=== PATIENT | female | born 1975 | race Hispanic/Latino ===

== ENCOUNTER 2019-05-18 12:08 | Outpatient (CLI) | payer OTHER ==
--- NOTE | 2019-05-18 17:22 | ULT ---
THYROID ULTRASOUND: 05/18/19 COMPARISON: None. HISTORY: Nodule in the thyroid gland, lump in the neck. TECHNIQUE: Multiplanar carroll scale sonographic imaging of the thyroid gland obtained. FINDINGS: Thyroid isthmus measures 4 mm in AP dimension. Right lobe measures 5.1 x 1.9 x 2.0 cm and left lobe m easures 3.8 x 1.4 x 1.1 cm. There is a dominant hypoechoic solid mass within the right lobe of the thyroid gland measuring 2.9 x 1.9 x 2.2 cm. There are numerous tiny hypoechoic nodules identified within the left lobe of the thyroid gland. The re are at least four such nodules, the largest measuring up to 8 mm. IMPRESSION: TI-RADS 4 - moderately suspicious. Given size of dominant nodule over 1.5 cm, fine needle aspiration of dominant right thyroid nodule recommended. POS: [facility]
== END 2019-05-18 12:09 | disposition home or self-care (01) ==
LOC: ULT 12:08
PROVIDERS: ATTEND Internal Medicine
DX: E04.1 Nontoxic single thyroid nodule (principal)
CPT/HCPCS: 76536

== ENCOUNTER 2019-06-06 12:13 | Day surgery (SDC) | payer OTHER ==
[2019-06-06] MEDS ORDERED: Lidocaine 1% PF 5 ML VIAL ONE (12:35)
[2019-06-06] MEDS ORDERED: Sodium Bicarbonate 2.5 MEQ/5 ML VIAL ONE (12:35)
[2019-06-06 13:46] VITALS: BMI 32.2
[2019-06-06 13:48] VITALS: BP 124/66; TEMP 97.7
--- NOTE | 2019-06-06 13:53 | ULT ---
US Thyroid Needle Bx History: Thyroid nodule Comparison: Thyroid ultrasound April 2019 Findings: Patient was brought to the ultrasound suite. All questions were answered. Informed consent was obtained. Timeout performed. Patient's neck was prepped and draped in normal sterile fashion. 2 mL lidocaine was instilled into th e superficial and deep soft tissues. Using ultrasound guidance a total of 4() 25-gauge aspirations were was obtained of the right thyroid nodule. Patient tolerated the procedure well without complication. Impression: Technically successful ultrasound-guided right thyroid nodule fine needle aspiration.
== END 2019-06-06 13:30 | disposition home or self-care (01) ==
LOC: ULT 12:13
PROVIDERS: ATTEND Student in an Organized Health Care Education/Training Program
PROC: 0G9H3ZX Drainage of Right Thyroid Gland Lobe, Percutaneous Approach, Diagnostic (ICD-10-PCS; principal; 2019-06-06)
DX: E04.1 Nontoxic single thyroid nodule (principal); I10 Essential (primary) hypertension
CPT/HCPCS: 60100; 76942; 88173; J2001